=== PATIENT | female | born 1975 | race Caucasian/White ===

== ENCOUNTER 2020-07-26 16:43 | Emergency (ER) | payer BC ==
[~2020-07-26] VITALS: Ht 154.9 cm; Wt 77.1 kg
[2020-07-26 16:55] VITALS: Ht 154.9 cm; Wt 77.1 kg
[2020-07-26 17:48] LABS: BASOPHIL % 0.9 % (0-2)
[2020-07-26 17:49] LABS: PLATELET COUNT 127 x10^3mcL (130-400); RED CELL DISTRIBUTION WIDTH 16.4 % (11.5-14.5)
[2020-07-26 18:16] LABS: ALBUMIN 3.1 g/dL (3.4-5.0); ALKALINE PHOSPHATASE 178 U/L (46-116); ALT/SGPT 65 U/L (14-59); AMYLASE 66 U/L (25-115); AST/SGOT 118 U/L (15-37); BILIRUBIN TOTAL 1.1 mg/dL (0.20-1.00); CALCIUM 9.2 mg/dL (8.5-10.1); CARBON DIOXIDE 20.4 mmol/L (21-32); CHLORIDE SERUM 91 mmol/L (98-107); CREATININE SERUM 0.7 mg/dL (0.6-1.0); GFR1 > 60 mL/min; GLUCOSE SERUM 76 mg/dL (74-106); LIPASE 315 IU/L (73-393); SODIUM SERUM 130 mmol/L (136-145); TOTAL PROTEIN, SERUM 7.8 g/dL (6.4-8.2)
[2020-07-26 18:17] LABS: POTASSIUM SERUM 2.9 mmol/L (3.5-5.1)
[2020-07-26 23:03] VITALS: BP 122/84
== END 2020-07-26 23:04 | disposition home or self-care (01) ==
LOC: ED 16:43
PROVIDERS: Emergency Medicine
DX: R79.89 Other specified abnormal findings of blood chemistry (principal)
CPT/HCPCS: J2405; J3480; J3490; Q9967